=== PATIENT | male | born 1975 | race Caucasian/White ===

== ENCOUNTER 2020-02-04 05:26 | Day surgery (SDC) | payer BC ==
[~2020-02-04] VITALS: Ht 182.9 cm; Wt 102.1 kg
[~2020-02-04 05:26] MED LIST: CRESTOR20 MG PO; TESTOSTERONE IM
[2020-02-04 05:52] LABS: HEMATOCRIT 48.9 % (42.0-54.0); HEMOGLOBIN 16.2 g/dL (13.5-17.5); MCH 30.7 pg (26.0-34.0); MCHC 33.1 g/dL (31.0-37.0); MCV 92.8 fL (80.0-100.0); MEAN PLATELET VOLUME 9.2 fL (7.4-10.4); RBC 5.27 10x6/uL (4.20-6.10); RDW 13.7 % (11.5-14.5); WBC 6.3 10x3/uL (4.8-10.8)
[2020-02-04 06:37] VITALS: BP 122/85; Ht 182.9 cm; Wt 102.1 kg
[2020-02-04] MEDS ORDERED: PERCOCET 5-3251 TAB PO (08:28)
[2020-02-04] MEDS ORDERED: TORADOL10 MG PO (08:28)
--- NOTE | 2020-02-04 10:08 | NUR ---
DISCHARGE INSTRUCTIONS PROVIDED, IV DC'D WITH TIP INTACT. WHEELED OUT TO PT VEHICLE
--- NOTE | 2020-02-04 11:26 | OP ---
PATIENT NAME: KAYLIE MCKEE MEDICAL RECORD: [id number] :73 LOCATION:[facility] ADMISSION DATE: SURGEON: RAMY RIGGS DO DATE OF OPERATION: 02/04/2020 PROCEDURE PERFORMED: Right knee arthroscopy with partial medial meniscectomy. PREOPERATIVE DIAGNOSIS: Right knee locked meniscal tear, medial meniscus. 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 INDICATIONS: Mr. Mckee is a 44-year-old male who presented to my office originally with continued right knee pain and a popping, catching and locking of his right knee. He is tired of dealing with it and wants something done, and got an MRI which showed the meniscal tear read as a bucket-handle on the MRI of the medial meniscus. He got to a point as we were not doing elective surgery, he got to a point where it locked on him and he could not move his leg and he asked if I could do something about it. I told him that he would be at increased risk for infection, bleeding, damage to nerves and vessels, but increased risk for the COVID virus and he was okay with that risk and signed the consent. SURGEON: Ramy Riggs DO DESCRIPTION OF PROCEDURE: The patient was taken to the operative suite, laid in supine position, given general anesthetic and 2 grams of Ancef preoperatively. The right lower extremity was then prepped and draped in sterile fashion. Timeout was performed, everyone was in agreement with the correct side, site, patient and procedure. We then began by making an incision over the anterolateral aspect of the knee for anterolateral portal. Once that was completed with an 11-blade scalpel, trocar was entered into the knee joint. I then saw cartilage floating around in the knee and the suprapatellar pouch and the patella. There was a slight chondromalacia on the lateral facet of the patella, but no loose pieces. The lateral gutter was clear as well as medial gutter. The knee was then brought from extension to flexion and then medial compartment was entered. I saw grade III chondromalacia of the medial femoral condyle on the weightbearing surface. We then put a valgus stress on the knee and made a medial portal with an 18-gauge spinal needle and 11-blade scalpel and the probe was brought in. I saw a meniscal tear in the posterior horn of the medial meniscus extending to almost the middle portion of the meniscus and the shaver was then brought in as well as a biter to trim back the meniscal tear to a stable point posteriorly and all around to the middle portion with a biter and a shaver. Once that was completed, I did an abrasion chondroplasty of the medial femoral condyle as well, removing any loose pieces. I then inspected the ACL and it was in good repair. The MCL was taut as well with valgus stress and then the knee was [id number]'ed on entering the lateral compartment. Lateral compartment looked good. There were no meniscal tears seen and the cartilage was in good shape. We then inspected the trochlea and there was grade III chondromalacia of the trochlea as well, but no loose pieces that shave out. We then turned the water off and suction on and the scope was removed from the knee. I then closed the portals with 4-0 Monocryl in inverted interrupted fashion. I was assisted by Edvin Guzman, certified surgical medical lab assistant. He was then dressed with Steri-Strips, Adaptic, Telfa and Tegaderm and then the knee was wrapped with an Raza wrap and a NEGRA stocking was placed up to the knee. OPERATIVE REPORT [id number] KAYLIE MCKEE He was then awakened and taken to recovery in stable condition. BLOOD LOSS: Minimal. COMPLICATIONS: None. TRANSINT:[id number] Voice Confirmation ID: [id number] DOCUMENT ID: [id number] RAMY RIGGS DO at 1126 CC: [id number] DICTATION DATE: 02/04/20841 [employer]PPLY WORKER: 02/04/20 1010 [facility] 02/04/20 [facility] [address] [place] [address]
== END 2020-02-04 10:12 | disposition home or self-care (01) ==
LOC: D.OPS 05:26
PROVIDERS: Anesthesiology; ATTEND Orthopaedic Surgery
DX: S83.241D Other tear of medial meniscus, current injury, right knee, subsequent encounter (principal); X58.XXXD Exposure to other specified factors, subsequent encounter; M94.261 Chondromalacia, right knee; M25.561 Pain in right knee